=== PATIENT | female | born 1960 | race Caucasian/White ===

== ENCOUNTER 2017-08-17 16:07 | Emergency (ER) | payer OTHER ==
[~2017-08-17] VITALS: Ht 142.2 cm; Wt 28.6 kg
[2017-08-17] MEDS ORDERED: FLEET MINERAL133 ML PR (21:08)
[2017-08-17] MEDS ORDERED: SENEXON8.6 MG PO (21:08)
[2017-08-17 21:20] VITALS: BP 148/116
== END 2017-08-17 21:21 | disposition home or self-care (01) ==
LOC: EME 16:07
DX: K59.00 Constipation, unspecified (principal); R56.9 Unspecified convulsions; K21.9 Gastro-esophageal reflux disease without esophagitis; G80.9 Cerebral palsy, unspecified
CPT/HCPCS: 74018; 99281; 99284

== ENCOUNTER 2017-08-20 12:48 | Inpatient (IN) | payer OTHER ==
[~2017-08-20] VITALS: Ht 152.4 cm; Wt 23.0 kg
[~2017-08-20 12:48] MED LIST: FLEET MINERAL133 ML PR; SENEXON8.6 MG PO
[2017-08-20 13:44] LABS: BASOPHIL (%) 0.1 % (0-1); EOSINOPHIL (%) 0.1 % (0-5); HEMATOCRIT 60.4 % (36.0-46.0); HEMOGLOBIN 19.9 G/DL (11.9-15.5); IMMATURE GRANULOCYTE (%) 0.3 % (0.0-0.7); LYMPHOCYTE (%) 14.5 % (15-42); LYMPHOCYTE COUNT 1.4 K/uL (1.0-2.8); MCH 31.3 PG (29.0-34.0); MCHC 32.9 G/DL (30.0-36.0); MONOCYTE COUNT 0.6 K/uL (0-0.8); NEUTROPHIL COUNT 7.5 K/uL (1.8-6.4); RBC DIS.WIDTH-CV 12.8 % (11.8-14.6); RED BLOOD COUNT 6.36 M/uL (3.80-5.20); WHITE BLOOD COUNT 9.5 K/uL (4.1-10.2)
[2017-08-20 13:59] LABS: ALBUMIN 4.8 g/dL (3.2-4.8); CHLORIDE 132 mEq/L (99-109); POTASSIUM 4.2 mEq/L (3.7-5.4)
[2017-08-20 14:02] LABS: GLUCOSE 117 mg/dL (70-99); TOTAL PROTEIN 8.3 g/dL (6.4-8.3)
[2017-08-20 14:03] LABS: TOTAL BILIRUBIN 1.7 mg/dL (0.0-1.0)
[2017-08-20 14:05] LABS: ALKALINE PHOSPHATASE 128 IU/L (3-129); GFR ESTIMATE (CALCULATED) > 59 mL/min/
[2017-08-20 14:06] LABS: SODIUM 171 mEq/L (136-147); UREA NITROGEN (BUN) 76 mg/dL (9-23)
[2017-08-20 14:07] LABS: AST (GOT) 50 IU/L (2-34)
[2017-08-20 14:08] LABS: ALT (GPT) 104 IU/L (3-49)
[2017-08-20 14:51] LABS: PLAT.SUFFICIENCY DECREASED; PLATELET COUNT 55 K/uL (156-360)
[2017-08-20 15:06] LABS: CHLORIDE 132 mEq/L (99-109); POTASSIUM 3.8 mEq/L (3.7-5.4)
[2017-08-20 15:08] LABS: GLUCOSE 110 mg/dL (70-99)
[2017-08-20 15:12] LABS: CREATININE 1.1 mg/dL (0.6-1.3); GFR ESTIMATE (CALCULATED) 54 mL/min/
[2017-08-20 15:13] LABS: UREA NITROGEN (BUN) 72 mg/dL (9-23)
[2017-08-20 15:15] LABS: SODIUM 171 mEq/L (136-147)
[2017-08-20] MEDS ORDERED: SENNA8.6 MG PO ×2 (16:11→16:18)
[2017-08-20] MEDS ORDERED: VITAMIN D400 UNIT PO (16:12)
[2017-08-20] MEDS ORDERED: OYST-CAL-500500 MG PO (16:13)
[2017-08-20] MEDS ORDERED: KEPPRA750 MG PO (16:13)
[2017-08-20] MEDS ORDERED: TEGRETOL100 MG PO (16:14)
[2017-08-20] MEDS ORDERED: DAILY MULTIPLE1 EAC2 PO (16:14)
[2017-08-20] MEDS ORDERED: ATIVAN1 MG PO (16:14)
[2017-08-20] MEDS ORDERED: RISAMINE OINTM113 GM TP (16:14)
[2017-08-20] MEDS ORDERED: ROBAFEN DM COU118 M1 PO (16:15)
[2017-08-20] MEDS ORDERED: CHILDREN'S160 MG/12 PO (16:15)
[2017-08-20] MEDS ORDERED: DIAZEPAM10 MG PO (16:16)
[2017-08-20] MEDS ORDERED: TYLENOL REGULA325 MG PO (16:16)
[2017-08-20] MEDS ORDERED: ATARAX,VISTARIL25 MG PO (16:19)
[2017-08-20 17:32] LABS: CARBAMAZEPINE (TEGRETOL) 6.1 MCG/ML (4.0-12.0)
[2017-08-20 18:07] VITALS: BP 127/91
[2017-08-20 19:00] VITALS: BP 110/83
[2017-08-20 19:29] LABS: CHLORIDE 132 MEQ/L (99-109); GFR ESTIMATE (CALCULATED) > 59 mL/min/; GLUCOSE 110 mg/dL (70-99); MAGNESIUM 2.7 mg/dl (1.3-2.7); PHOSPHORUS 2.3 mg/dL (2.5-4.9); POTASSIUM 3.4 MEQ/L (3.7-5.4); UREA NITROGEN (BUN) 58 mg/dL (9-23)
[2017-08-20 19:50] LABS: SODIUM 170 MEQ/L (136-147)
[2017-08-20 20:00] VITALS: BP 128/103
[2017-08-20 21:00] VITALS: BP 130/91
[2017-08-20 22:00] VITALS: BP 128/91
[2017-08-20 22:23] LABS: CHLORIDE 132 MEQ/L (99-109); CREATININE 0.9 MG/DL (0.6-1.3); GFR ESTIMATE (CALCULATED) > 59 mL/min/; GLUCOSE 107 mg/dL (70-99); POTASSIUM 3.6 MEQ/L (3.7-5.4); UREA NITROGEN (BUN) 56 mg/dL (9-23)
[2017-08-20 22:33] LABS: SODIUM 170 MEQ/L (136-147)
[2017-08-20 23:00] VITALS: BP 136/95
[2017-08-21] VITALS (11 sets, daily range): BP systolic 115–144; BP diastolic 76–103
[2017-08-21 02:31] LABS: CHLORIDE 138 mEq/L (99-109); POTASSIUM 3.4 mEq/L (3.7-5.4)
[2017-08-21 02:32] LABS: GLUCOSE 95 mg/dL (70-99)
[2017-08-21 02:36] LABS: CREATININE 0.8 mg/dL (0.6-1.3); GFR ESTIMATE (CALCULATED) > 59 mL/min/
[2017-08-21 02:37] LABS: UREA NITROGEN (BUN) 54 mg/dL (9-23)
[2017-08-21 02:38] LABS: SODIUM 166 mEq/L (136-147)
[2017-08-21 05:51] LABS: HEMATOCRIT 49.3 % (36.0-46.0); MCH 31.3 PG (29.0-34.0); MCHC 31.4 G/DL (30.0-36.0); PLATELET COUNT 54 K/uL (156-360); RBC DIS.WIDTH-CV 12.9 % (11.8-14.6); RBC DIS.WIDTH-SD 46.6 % (39-53); WHITE BLOOD COUNT 6.3 K/uL (4.1-10.2)
[2017-08-21 05:54] LABS: HEMOGLOBIN 15.5 G/DL (11.9-15.5); MCV 99.6 FL (83-99); RED BLOOD COUNT 4.95 M/uL (3.80-5.20)
[2017-08-21 06:13] LABS: CHLORIDE 133 MEQ/L (99-109); CREATININE 0.7 MG/DL (0.6-1.3); GFR ESTIMATE (CALCULATED) > 59 mL/min/; GLUCOSE 85 mg/dL (70-99); POTASSIUM 3.2 MEQ/L (3.7-5.4); UREA NITROGEN (BUN) 48 mg/dL (9-23)
[2017-08-21 06:14] LABS: SODIUM 170 MEQ/L (136-147)
[2017-08-21 10:47] LABS: CHLORIDE 133 MEQ/L (99-109); CREATININE 0.7 MG/DL (0.6-1.3); GFR ESTIMATE (CALCULATED) > 59 mL/min/; GLUCOSE 80 mg/dL (70-99); UREA NITROGEN (BUN) 46 mg/dL (9-23)
[2017-08-21 10:48] LABS: POTASSIUM 3.9 MEQ/L (3.7-5.4); SODIUM 169 MEQ/L (136-147)
[2017-08-23] MEDS ORDERED: RISAMINE OINTM113 GM TP (12:33)
[2017-08-23] MEDS ORDERED: DAILY MULTIPLE1 EAC2 PO (12:33)
[2017-08-23] MEDS ORDERED: SENNA8.6 MG PO (12:33)
[2017-08-23] MEDS ORDERED: OYST-CAL-500500 MG PO (12:33)
[2017-08-23] MEDS ORDERED: CHILDREN'S160 MG/12 PO (12:33)
[2017-08-23] MEDS ORDERED: TEGRETOL100 MG PO (12:33)
[2017-08-23] MEDS ORDERED: KEPPRA750 MG PO (12:33)
[2017-08-23] MEDS ORDERED: VITAMIN D400 UNIT PO (12:33)
[2017-08-23] MEDS ORDERED: FLEET MINERAL133 ML PR (12:33)
[2017-08-23] MEDS ORDERED: ROBAFEN DM COU118 M1 PO (12:33)
[2017-08-23] MEDS ORDERED: ATARAX,VISTARIL25 MG PO (12:33)
== END 2017-08-23 14:20 | disposition home or self-care (01) | DRG 640 ==
LOC: EME 12:48 → EDOF 16:44 → 5EAST 16:44 → 4WEST 16:44 → ENRESERV 16:45 → CANRESERV 16:45 → ENRESERV 16:59 → 4WEST 17:52 → CANRESERV 17:53 → ENRESERV 17:53 → 4WEST 08-21 10:57 → 5EAST 08-21 10:57 → ENRESERV 08-21 10:58 → 5EAST 08-21 15:43 → ENPENDDIS 08-23 → 5EAST 08-23 14:20
PROVIDERS: Emergency Medicine; Internal Medicine Critical Care Medicine
DX: E87.0 Hyperosmolality and hypernatremia (principal); E43 Unspecified severe protein-calorie malnutrition; E86.0 Dehydration; Z51.5 Encounter for palliative care; Z66 Do not resuscitate; D75.1 Secondary polycythemia; F73 Profound intellectual disabilities; G80.9 Cerebral palsy, unspecified; K21.9 Gastro-esophageal reflux disease without esophagitis; K56.41 Fecal impaction; K56.7 Ileus, unspecified; M41.9 Scoliosis, unspecified; R13.10 Dysphagia, unspecified; R32 Unspecified urinary incontinence; Z68.1 Body mass index [BMI] 19.9 or less, adult
CPT/HCPCS: 74018; 74177; 80048; 80048 91; 80053; 80156; 81003; 83605; 83735; 83930; 84100; 85025; 85027; 87641; 99281; 99284; 99285; J1644; J7030

== ENCOUNTER 2017-09-05 15:47 | Inpatient (IN) | payer OTHER ==
[~2017-09-05] VITALS: Ht 121.9 cm; Wt 37.0 kg
[~2017-09-05 15:47] MED LIST changes: +ATARAX,VISTARIL25 MG PO; +ATIVAN1 MG PO; +CHILDREN'S160 MG/12 PO; +DAILY MULTIPLE1 EAC2 PO; +DIAZEPAM10 MG PO; +KEPPRA750 MG PO; +OYST-CAL-500500 MG PO; +RISAMINE OINTM113 GM TP; +ROBAFEN DM COU118 M1 PO; +SENNA8.6 MG PO; +TEGRETOL100 MG PO; +TYLENOL REGULA325 MG PO; +VITAMIN D400 UNIT PO
[2017-09-05 20:25] LABS: BASOPHIL (%) 0.1 % (0-1); EOSINOPHIL (%) 0 % (0-5); HEMATOCRIT 48.4 % (36.0-46.0); HEMOGLOBIN 14.9 G/DL (11.9-15.5); IMMATURE GRANULOCYTE (%) 0.5 % (0.0-0.7); LYMPHOCYTE (%) 25.5 % (15-42); LYMPHOCYTE COUNT 1.9 K/uL (1.0-2.8); MCH 31.9 PG (29.0-34.0); MCHC 30.8 G/DL (30.0-36.0); MONOCYTE (%) 5.5 % (3-12); MONOCYTE COUNT 0.4 K/uL (0-0.8); NEUTROPHIL (%) 68.4 % (45-76); NEUTROPHIL COUNT 5.1 K/uL (1.8-6.4); RBC DIS.WIDTH-CV 14.5 % (11.8-14.6); RBC DIS.WIDTH-SD 51.8 % (39-53); RED BLOOD COUNT 4.67 M/uL (3.80-5.20); WHITE BLOOD COUNT 7.4 K/uL (4.1-10.2)
[2017-09-05 20:29] LABS: CHLORIDE 139 mEq/L (99-109); POTASSIUM 3.7 mEq/L (3.7-5.4)
[2017-09-05 20:30] LABS: GLUCOSE 100 mg/dL (70-99)
[2017-09-05 20:34] LABS: CREATININE 0.7 mg/dL (0.6-1.3); GFR ESTIMATE (CALCULATED) > 59 mL/min/
[2017-09-05 20:35] LABS: UREA NITROGEN (BUN) 49 mg/dL (9-23)
[2017-09-05 20:37] LABS: SODIUM > 174 mEq/L (136-147)
[2017-09-05 21:22] LABS: MCV 103.6 FL (83-99); PLATELET COUNT 89 K/uL (156-360)
[2017-09-05 21:23] LABS: APPEARANCE CLOUDY ((CLEAR)); BILIRUBIN NEGATIVE; BLOOD NEGATIVE; COLOR AMBER ((YELLOW)); GLUCOSE (STRIP) NEGATIVE; KETONES NEGATIVE; LEUKOCYTES SMALL; NITRITE POSITIVE; PROTEIN (STRIP) 100; SPECIFIC GRAVITY 1.033 (1.000-1.030)
[2017-09-05 22:14] LABS: BACTERIA 3+ /HPF; EPITHELIAL CELLS 3+ /HPF; MUCUS 1+ /LPF; RED BLOOD CELLS NONE SEEN /HPF (0-5); UCUL ADDED? YES; WHITE BLOOD CELLS 20-30 /HPF (0-5)
[2017-09-05] MEDS ORDERED: SENNA LAX8.6 MG GT (22:24)
[2017-09-05] MEDS ORDERED: RISAMINE OINTM113 GM TP (22:27)
[2017-09-05] MEDS ORDERED: ROBAFEN DM COU118 M1 GT (22:28)
[2017-09-05] MEDS ORDERED: ATARAX,VISTARIL25 MG GT (22:29)
[2017-09-05] MEDS ORDERED: VITAMIN D-3 401 EACH GT (22:36)
[2017-09-05] MEDS ORDERED: CALCIUM 500 MG1 EACH GT (22:39)
[2017-09-05] MEDS ORDERED: CARBAMAZEPINE100 MG GT (22:40)
[2017-09-05] MEDS ORDERED: KEPPRA750 MG GT (22:40)
[2017-09-05] MEDS ORDERED: DAILY VITE1 EAC1 GT (22:42)
[2017-09-05] MEDS ORDERED: CHILDREN'S160 MG/22 PO (22:45)
[2017-09-06 01:03] LABS: CHLORIDE 135 mEq/L (99-109); POTASSIUM 3.5 mEq/L (3.7-5.4)
[2017-09-06 01:08] LABS: CREATININE 0.7 mg/dL (0.6-1.3); GFR ESTIMATE (CALCULATED) > 59 mL/min/
[2017-09-06 01:09] LABS: UREA NITROGEN (BUN) 47 mg/dL (9-23)
[2017-09-06 01:11] LABS: GLUCOSE 165 mg/dL (70-99)
[2017-09-06 01:12] LABS: SODIUM > 174 mEq/L (136-147)
[2017-09-06 02:00] VITALS: BP 133/86
[2017-09-06 05:23] LABS: HEMATOCRIT 47.4 % (36.0-46.0); MCH 30.6 PG (29.0-34.0); MCHC 29.5 G/DL (30.0-36.0); MCV 103.5 FL (83-99); NRBC (%) 0.3 /100 WBC (0-0); PLATELET COUNT 88 K/uL (156-360); RBC DIS.WIDTH-CV 14.4 % (11.8-14.6); RBC DIS.WIDTH-SD 51.1 % (39-53); RED BLOOD COUNT 4.58 M/uL (3.80-5.20); WHITE BLOOD COUNT 7.2 K/uL (4.1-10.2)
[2017-09-06 05:30] VITALS: BP 124/80
[2017-09-06 06:00] LABS: CHLORIDE 133 MEQ/L (99-109); CREATININE 0.6 MG/DL (0.6-1.3); GFR ESTIMATE (CALCULATED) > 59 mL/min/; GLUCOSE 123 mg/dL (70-99); POTASSIUM 3.9 MEQ/L (3.7-5.4); UREA NITROGEN (BUN) 43 mg/dL (9-23)
[2017-09-06 06:01] LABS: SODIUM 173 MEQ/L (136-147)
[2017-09-06 07:33] VITALS: BP 128/78
[2017-09-06 11:57] VITALS: BP 117/94
[2017-09-06 12:56] LABS: ALBUMIN 3.2 G/DL (3.2-4.8); ALKALINE PHOSPHATASE 144 IU/L (3-129); ALT (GPT) 39 IU/L (3-49); AST (GOT) 38 IU/L (2-34); CHLORIDE 130 MEQ/L (99-109); CREATININE 0.5 MG/DL (0.6-1.3); DIRECT BILIRUBIN 0.2 mg/dL (0.0-0.3); GFR ESTIMATE (CALCULATED) > 59 mL/min/; GLUCOSE 109 mg/dL (70-99); TOTAL BILIRUBIN 0.6 MG/DL (0.0-1.0); TOTAL PROTEIN 5.6 G/DL (6.4-8.3); UREA NITROGEN (BUN) 39 mg/dL (9-23)
[2017-09-06 13:07] LABS: POTASSIUM 3.1 MEQ/L (3.7-5.4); SODIUM 166 MEQ/L (136-147)
[2017-09-06 19:30] VITALS: BP 158/86
[2017-09-06 20:25] LABS: CHLORIDE 131 MEQ/L (99-109); CREATININE 0.5 MG/DL (0.6-1.3); GFR ESTIMATE (CALCULATED) > 59 mL/min/; GLUCOSE 114 mg/dL (70-99); POTASSIUM 3.8 MEQ/L (3.7-5.4); SODIUM 166 MEQ/L (136-147); UREA NITROGEN (BUN) 34 mg/dL (9-23)
[2017-09-06 22:45] VITALS: BP 108/64
[2017-09-07 03:30] VITALS: BP 113/67
[2017-09-07 05:28] LABS: HEMATOCRIT 34.2 % (36.0-46.0); MCH 31.3 PG (29.0-34.0); MCV 100.9 FL (83-99); NRBC (%) 0.4 /100 WBC (0-0); PLATELET COUNT 81 K/uL (156-360); RBC DIS.WIDTH-CV 14.6 % (11.8-14.6); RBC DIS.WIDTH-SD 50.1 % (39-53); WHITE BLOOD COUNT 5.6 K/uL (4.1-10.2)
[2017-09-07 05:31] LABS: HEMOGLOBIN 10.6 G/DL (11.9-15.5); RED BLOOD COUNT 3.39 M/uL (3.80-5.20)
[2017-09-07 06:01] LABS: CHLORIDE 131 MEQ/L (99-109); CREATININE 0.5 MG/DL (0.6-1.3); GFR ESTIMATE (CALCULATED) > 59 mL/min/; GLUCOSE 97 mg/dL (70-99); POTASSIUM 3.9 MEQ/L (3.7-5.4); SODIUM 166 MEQ/L (136-147); UREA NITROGEN (BUN) 30 mg/dL (9-23)
[2017-09-07 08:30] VITALS: BP 112/60
[2017-09-07 12:17] VITALS: BP 119/78
[2017-09-07 12:53] LABS: CHLORIDE 129 MEQ/L (99-109); CREATININE 0.5 MG/DL (0.6-1.3); GFR ESTIMATE (CALCULATED) > 59 mL/min/; GLUCOSE 103 mg/dL (70-99); UREA NITROGEN (BUN) 28 mg/dL (9-23)
[2017-09-07 12:55] LABS: SODIUM 164 MEQ/L (136-147)
[2017-09-07 16:56] VITALS: BP 129/67
[2017-09-07 20:49] VITALS: BP 123/70
[2017-09-07 20:52] LABS: CHLORIDE 126 MEQ/L (99-109); CREATININE 0.4 MG/DL (0.6-1.3); GFR ESTIMATE (CALCULATED) > 59 mL/min/; GLUCOSE 109 mg/dL (70-99); SODIUM 157 MEQ/L (136-147); UREA NITROGEN (BUN) 23 mg/dL (9-23)
[2017-09-08 00:20] VITALS: BP 103/56
[2017-09-08 04:40] VITALS: BP 119/66
[2017-09-08 06:18] LABS: HEMOGLOBIN 10.7 G/DL (11.9-15.5); MCH 31.4 PG (29.0-34.0); MCHC 32.4 G/DL (30.0-36.0); NRBC (%) 0.4 /100 WBC (0-0); PLATELET COUNT 76 K/uL (156-360); RBC DIS.WIDTH-CV 14.7 % (11.8-14.6); RBC DIS.WIDTH-SD 49.2 % (39-53); RED BLOOD COUNT 3.41 M/uL (3.80-5.20); WHITE BLOOD COUNT 5.2 K/uL (4.1-10.2)
[2017-09-08 06:20] LABS: MCV 96.8 FL (83-99)
[2017-09-08 06:36] LABS: CHLORIDE 124 MEQ/L (99-109); CREATININE 0.4 MG/DL (0.6-1.3); GFR ESTIMATE (CALCULATED) > 59 mL/min/; GLUCOSE 99 mg/dL (70-99); POTASSIUM 3.3 MEQ/L (3.7-5.4); SODIUM 156 MEQ/L (136-147); UREA NITROGEN (BUN) 19 mg/dL (9-23)
[2017-09-08 07:49] VITALS: BP 118/73
[2017-09-08 11:46] VITALS: BP 110/71
[2017-09-08 15:18] VITALS: BP 94/64
[2017-09-08 19:35] VITALS: BP 114/79
[2017-09-09] VITALS (7 sets, daily range): BP systolic 112–130; BP diastolic 67–83
[2017-09-09 05:55] LABS: CHLORIDE 119 MEQ/L (99-109); CREATININE 0.4 MG/DL (0.6-1.3); GFR ESTIMATE (CALCULATED) > 59 mL/min/; GLUCOSE 100 mg/dL (70-99); POTASSIUM 3.9 MEQ/L (3.7-5.4); SODIUM 151 MEQ/L (136-147); UREA NITROGEN (BUN) 10 mg/dL (9-23)
[2017-09-10 03:07] VITALS: BP 118/66
[2017-09-10 05:50] LABS: CHLORIDE 116 MEQ/L (99-109); CREATININE 0.4 MG/DL (0.6-1.3); GFR ESTIMATE (CALCULATED) > 59 mL/min/; GLUCOSE 85 mg/dL (70-99); POTASSIUM 4.2 MEQ/L (3.7-5.4); SODIUM 147 MEQ/L (136-147); UREA NITROGEN (BUN) 6 mg/dL (9-23)
[2017-09-10 08:41] VITALS: BP 120/78
[2017-09-10 13:54] VITALS: BP 147/87
[2017-09-10 20:47] VITALS: BP 139/85
[2017-09-10 23:58] VITALS: BP 133/76
[2017-09-11 04:09] VITALS: BP 126/78
[2017-09-11 05:08] LABS: ALBUMIN 2.9 g/dL (3.2-4.8)
[2017-09-11 05:09] LABS: POTASSIUM 4.5 mEq/L (3.7-5.4); SODIUM 143 mEq/L (136-147)
[2017-09-11 05:10] LABS: CHLORIDE 112 mEq/L (99-109)
[2017-09-11 05:11] LABS: GLUCOSE 99 mg/dL (70-99)
[2017-09-11 05:14] LABS: PHOSPHORUS 2.1 mg/dL (2.5-4.9)
[2017-09-11 05:15] LABS: CREATININE 0.5 mg/dL (0.6-1.3); GFR ESTIMATE (CALCULATED) > 59 mL/min/
[2017-09-11 05:16] LABS: UREA NITROGEN (BUN) 4 mg/dL (9-23)
[2017-09-11 07:30] VITALS: BP 123/78
[2017-09-11 12:11] VITALS: BP 139/69
[2017-09-11 17:47] VITALS: BP 122/69
[2017-09-11 20:00] VITALS: BP 129/87
[2017-09-12 01:13] VITALS: BP 142/73
[2017-09-12 03:38] VITALS: BP 135/70
[2017-09-12 06:50] VITALS: BP 106/64
[2017-09-12 07:03] LABS: CHLORIDE 111 MEQ/L (99-109); CREATININE 0.4 MG/DL (0.6-1.3); GFR ESTIMATE (CALCULATED) > 59 mL/min/; GLUCOSE 86 mg/dL (70-99); POTASSIUM 4.3 MEQ/L (3.7-5.4); SODIUM 145 MEQ/L (136-147); UREA NITROGEN (BUN) 2 mg/dL (9-23)
[2017-09-12 15:24] VITALS: BP 110/66
[2017-09-13 00:16] VITALS: BP 113/60
[2017-09-13 00:17] VITALS: BP 136/62
[2017-09-13 06:51] LABS: CHLORIDE 111 MEQ/L (99-109); CREATININE 0.4 MG/DL (0.6-1.3); GFR ESTIMATE (CALCULATED) > 59 mL/min/; GLUCOSE 95 mg/dL (70-99); POTASSIUM 3.6 MEQ/L (3.7-5.4); SODIUM 145 MEQ/L (136-147); UREA NITROGEN (BUN) 7 mg/dL (9-23)
[2017-09-13 07:30] VITALS: BP 99/58
[2017-09-13 15:13] VITALS: BP 111/64
[2017-09-13 23:41] VITALS: BP 117/70
[2017-09-14 07:14] LABS: CHLORIDE 108 MEQ/L (99-109); CREATININE 0.3 MG/DL (0.6-1.3); GFR ESTIMATE (CALCULATED) > 59 mL/min/; GLUCOSE 77 mg/dL (70-99); POTASSIUM 4.2 MEQ/L (3.7-5.4); SODIUM 141 MEQ/L (136-147); UREA NITROGEN (BUN) 5 mg/dL (9-23)
[2017-09-14 07:50] VITALS: BP 119/72
[2017-09-14 15:43] VITALS: BP 100/71
[2017-09-14 23:10] VITALS: BP 119/80
[2017-09-15 07:19] VITALS: BP 129/70
== END 2017-09-15 16:12 | disposition home or self-care (01) | DRG 641 ==
LOC: EME 15:47 → 4EAST 23:55 → EDOF 23:55 → ENRESERV 23:56 → 4EAST 09-06 01:51 → ENRESERV 09-11 16:18 → 5EAST 09-11 20:08 → ENPENDDIS 09-15 → 5EAST 09-15 16:12
PROVIDERS: Emergency Medicine; Hospitalist; Internal Medicine; Internal Medicine Nephrology
PROC: 0DH63UZ Insertion of Feeding Device into Stomach, Percutaneous Approach (ICD-10-PCS; principal; 2017-09-10)
DX: E87.0 Hyperosmolality and hypernatremia (principal); E86.0 Dehydration; E87.6 Hypokalemia; N39.0 Urinary tract infection, site not specified; B96.20 Unspecified Escherichia coli [E. coli] as the cause of diseases classified elsewhere; B37.0 Candidal stomatitis; R62.7 Adult failure to thrive; R64 Cachexia; R63.6 Underweight; D69.6 Thrombocytopenia, unspecified; F72 Severe intellectual disabilities; G40.909 Epilepsy, unspecified, not intractable, without status epilepticus; G80.9 Cerebral palsy, unspecified; K44.9 Diaphragmatic hernia without obstruction or gangrene; G47.00 Insomnia, unspecified; D75.89 Other specified diseases of blood and blood-forming organs; Z66 Do not resuscitate; Z68.1 Body mass index [BMI] 19.9 or less, adult
CPT/HCPCS: 71045; 71046; 80048; 80048 91; 80069; 80076; 81003; 82607; 84443; 85025; 85027; 87040; 87077; 87086; 87186; 92610 GN; 99281; 99285; C1753; G8996 GN CL; G8997 GN CL; G8998 GN CL; J0696; J1953; J2060; J3480; J7040; J7050; J7060; J7070

== ENCOUNTER 2017-09-26 21:30 | Emergency (ER) | payer OTHER ==
[~2017-09-26] VITALS: Ht 137.2 cm; Wt 27.5 kg
[~2017-09-26 21:30] MED LIST changes: +ATARAX,VISTARIL25 MG GT; +CALCIUM 500 MG1 EACH GT; +CARBAMAZEPINE100 MG GT; +CHILDREN'S160 MG/22 PO; +DAILY VITE1 EAC1 GT; +KEPPRA750 MG GT; +ROBAFEN DM COU118 M1 GT; +SENNA LAX8.6 MG GT; +VITAMIN D-3 401 EACH GT
[2017-09-26 22:35] LABS: CHLORIDE 108 mEq/L (99-109); POTASSIUM 3.7 mEq/L (3.7-5.4)
[2017-09-26 22:36] LABS: SODIUM 142 mEq/L (136-147)
[2017-09-26 22:37] LABS: GLUCOSE 116 mg/dL (70-99)
[2017-09-26 22:40] LABS: HEMOGLOBIN 13.4 G/DL (11.9-15.5); MCH 32.9 PG (29.0-34.0); MCHC 34.4 G/DL (30.0-36.0); MCV 95.8 FL (83-99); PLATELET COUNT 151 K/uL (156-360); RBC DIS.WIDTH-CV 15.1 % (11.8-14.6); RBC DIS.WIDTH-SD 52.5 % (39-53); RED BLOOD COUNT 4.07 M/uL (3.80-5.20); WHITE BLOOD COUNT 7.6 K/uL (4.1-10.2)
[2017-09-26 22:41] LABS: CREATININE 0.6 mg/dL (0.6-1.3); GFR ESTIMATE (CALCULATED) > 59 mL/min/
[2017-09-26 22:42] LABS: UREA NITROGEN (BUN) 8 mg/dL (9-23)
[2017-09-27 00:46] VITALS: BP 142/80
== END 2017-09-27 00:47 | disposition home or self-care (01) ==
LOC: EME → EDBD 21:30 → EME 21:30
PROVIDERS: Emergency Medicine Emergency Medical Services
DX: R60.0 Localized edema (principal); I87.2 Venous insufficiency (chronic) (peripheral); G80.9 Cerebral palsy, unspecified; G40.909 Epilepsy, unspecified, not intractable, without status epilepticus; Z93.1 Gastrostomy status
CPT/HCPCS: 80048; 85027; 93971; 99281; 99284

== ENCOUNTER 2018-01-09 15:49 | Emergency (ER) | payer OTHER ==
[~2018-01-09] VITALS: Ht 96.5 cm; Wt 26.8 kg
[2018-01-09 20:01] LABS: HEMATOCRIT 41.9 % (36.0-46.0); HEMOGLOBIN 14.2 G/DL (11.9-15.5); MCH 30.6 PG (29.0-34.0); MCHC 33.9 G/DL (30.0-36.0); MCV 90.3 FL (83-99); PLATELET COUNT 112 K/uL (156-360); RBC DIS.WIDTH-CV 12.8 % (11.8-14.6); RBC DIS.WIDTH-SD 41.7 % (39-53); RED BLOOD COUNT 4.64 M/uL (3.80-5.20); WHITE BLOOD COUNT 6.8 K/uL (4.1-10.2)
[2018-01-09 20:09] LABS: INTER. NORMALIZED RATIO 1.1
[2018-01-09 20:11] LABS: ALBUMIN 3.9 g/dL (3.2-4.8); CHLORIDE 105 mEq/L (99-109); POTASSIUM 4.8 mEq/L (3.7-5.4); PTT 38.8 SEC (25-37); SODIUM 142 mEq/L (136-147)
[2018-01-09 20:14] LABS: GLUCOSE 90 mg/dL (70-99); TOTAL PROTEIN 7.1 g/dL (6.4-8.3)
[2018-01-09 20:16] LABS: TOTAL BILIRUBIN 0.3 mg/dL (0.0-1.0)
[2018-01-09 20:17] LABS: ALKALINE PHOSPHATASE 113 IU/L (3-129); CREATININE 0.6 mg/dL (0.6-1.3); GFR ESTIMATE (CALCULATED) > 59 mL/min/
[2018-01-09 20:18] LABS: UREA NITROGEN (BUN) 13 mg/dL (9-23)
[2018-01-09 20:19] LABS: AST (GOT) 13 IU/L (2-34)
[2018-01-09 20:20] LABS: ALT (GPT) 12 IU/L (3-49)
[2018-01-09 20:21] LABS: LIPASE 21 U/L (1.0-51.0)
[2018-01-09 21:49] VITALS: BP 136/78
== END 2018-01-09 21:50 | disposition home or self-care (01) ==
LOC: EME 15:49
PROVIDERS: Nurse Practitioner Family
DX: D69.6 Thrombocytopenia, unspecified (principal); K56.41 Fecal impaction; Z43.1 Encounter for attention to gastrostomy; K21.9 Gastro-esophageal reflux disease without esophagitis; F79 Unspecified intellectual disabilities; G80.9 Cerebral palsy, unspecified; G40.909 Epilepsy, unspecified, not intractable, without status epilepticus; M41.9 Scoliosis, unspecified; K22.70 Barrett's esophagus without dysplasia
CPT/HCPCS: 74177; 80053; 83605; 83690; 85027; 85610; 85730